=== PATIENT | male | born 1985 ===

== ENCOUNTER 2024-08-31 08:02 | Day surgery (SDC) | payer MEDICAID ==
[~2024-08-31 08:02] MED LIST: Sodium Chloride 0.9% 10 ML Syringe FLUSH PRN; Sodium Chloride 0.9% 10 ML Syringe FLUSH SCH
[2024-08-31] MEDS: Lactated Ringers 1,000 ML IV SCH (08:30)
[2024-08-31] MEDS ORDERED: Lidocaine 2% 5 ML SDV ONE (09:30)
[2024-08-31] MEDS ORDERED: Propofol 200 MG/20 ML SDV ONE ×3 (09:31→10:08)
== END 2024-08-31 11:35 | disposition home or self-care (01) ==
LOC: JD.SDS 08:02
PROVIDERS: ATTEND Surgery
DX: K29.51 Unspecified chronic gastritis with bleeding (principal); B96.81 Helicobacter pylori [H. pylori] as the cause of diseases classified elsewhere; K31.A0 Gastric intestinal metaplasia, unspecified; K64.1 Second degree hemorrhoids; K21.9 Gastro-esophageal reflux disease without esophagitis
CPT/HCPCS: 43239; 45378; C9777; J2003; J2704; J7120; 00813